=== PATIENT | male | born 1980 | race Caucasian/White ===

== ENCOUNTER 2020-12-04 17:24 | Emergency (ER) | payer BC ==
[~2020-12-04] VITALS: Ht 182.9 cm; Wt 113.4 kg
[2020-12-04 17:26] VITALS: BP 135/102
[2020-12-04 18:30] LABS: Basophils # (auto) 0 10 ^3/uL (0-0.2); Basophils % (auto) 0.4 % (0.0-2.0); Eosinophils # (auto) 0.2 10 ^3/uL (0-0.8); Eosinophils % (auto) 1.9 % (0.0-7.0); Hematocrit 43.3 % (41.0-53.0); Mean Corpuscular Hemoglobin 28.9 pg (28.0-32.0); Mean Corpuscular Hgb Conc. 34.6 g/dL (32.0-36.0); Mean Corpuscular Volume 83.7 fL (80.0-100.0); Monocytes # (auto) 0.5 10 ^3/uL (0-1.3); Monocytes % (auto) 6.6 % (0.0-12.0); Neutrophils # (auto) 5.5 10 ^3/uL (1.6-8.6); Neutrophils % (auto) 67.1 % (37.0-80.0); Nucleated Red Blood Cells % 0.1 %; Platelet Count (auto) 265 10^3/uL (140-450); Red Blood Cells 5.17 10^6/uL (4.5-5.90); Red Cell Distribution Width 14.3 % (11.8-14.3); White Blood Cell 8.2 10^3/uL (4.4-10.8)
[2020-12-04 18:45] LABS: INR 0.99 (0.9-1.15)
== END 2020-12-04 18:33 | disposition home or self-care (01) ==
LOC: ER 17:24
DX: I83.891 Varicose veins of right lower extremity with other complications (principal)
CPT/HCPCS: 36415; 85025; 85610; 85730